=== PATIENT | female | born 1975 | race Hispanic/Latino ===

== ENCOUNTER 2025-06-03 09:03 | Emergency (ER) | payer SELFPAY ==
[~2025-06-03] VITALS: Ht 160 cm; Wt 71.8 kg
[2025-06-03 09:12] VITALS: TEMP 97.5
--- NOTE | 2025-06-03 09:19 | ERN ---
ED Note History of Present Illness Stated Complaint: ANKLE Chief Complaint: Ankle Problem Time Seen by MD: 09:15 Dictation: 50-year-old female who presents to emergency room with complaints of left ankle pain. Denies any new ankle injuries. Patient states that she was seen and evaluated at an outside hospital about one week ago after sustaining a dog bite to the left ankle. States that she was given doxycycline antibiotics which he has been taking twice daily and has had Wound Care come to her house to take care of the dog bite. She states that with the increasing pain as well as the drainage coming from the left ankle she decided to come to emergency room for evaluation. She has follow up by Dr. Cartagena for wound care. She has follow up with her PCP in five days. Allergies: Coded Allergies: No Known Drug Allergies (Unverified Allergy, Unknown, 06/03/25) Past Medical History Past Medical History: No Pertinent History Surgical History: Appendectomy, Cholecystectomy Review of System Dictation Positive for ankle pain Review of Systems: was completed, & the rest were negative. Initial Vital Sign VS Vital Signs Date Time Temp Pulse Resp B/P (MAP) Pulse Ox O2 Delivery O2 Flow Rate FiO2 06/03/25 09:07 97.5 101 16 137/81 97 Room Air 0 06/03/25 09:12 21 Physical Exam Dictation GENERAL APPEARANCE NAD, activity normal for age, well developed/ well nourished, no cyanosis, pallor, or diaphoresis. EYES lids/conjunctiva normal. EARS/NOSE/THROAT Mucous membranes moist, nares normal, lips/teeth normal uvula midline without oral pharyngeal erythema, exudate or swelling TMs normal bilaterally. No lymphangitis/lymphedema. HEAD/NECK normocephalic atraumatic, no facial trauma, neck is supple. RESPIRATORY respiratory effort normal, speaks in full sentences, no tripod position, no accessory muscle use. Lungs clear to auscultation without rhonchi, wheezes, rales CARDIAC Regular rate and rhythm, no edema. ABDOMINAL Soft, ND/NT. No evidence of fluid wave. No pulsatile masses on exam, rebound tenderness, Crane sign or pain over Mcburney's point. MUSCLES/EXTREMITIES : Left lower extremity in soft splint. Uses walker for gait assistance. Splint removed noted to have swelling compared to right ankle. Tenderness to palpation of left lateral ankle. Pain with dorsiflexion. Overlying stitches on left lateral ankle. No signs of drainage. No underlying erythema. No fluctuance. SKIN Warm, pink and dry. No rashes, dermatoses, petechiae or lesions. NEUROLOGICAL Speech is clear and appropriate. Normal level of consciousness PSYCH Normal mood and affect. Judgement/competence is appropriate Results (Laboratory/Radiology) Laboratory/Radiology Comminuted fracture involving the distal metaphyseal end of the fibula, faint lucency involving the hip via in the distal metaphyseal, and probable nondisplaced fracture. Diffuse soft tissue edema around the ankle joint. ED Course ED Course Orders Procedure Category Date Status Time Ankle Comp 3vws Lt RAD 06/03/25 Resulted 09:19 Aerobic Culture GRICELDA 06/03/25 In Process 09:19 Vital Signs Date Time Temp Pulse Resp B/P (MAP) Pulse Ox O2 Delivery O2 Flow Rate FiO2 06/03/25 09:12 97.5 101 16 137/81 97 Room Air* 0 21 06/03/25 09:07 97.5 101 16 137/81 97 Room Air 0 Medical Decision Making MDM 50-year-old female here for ankle pain. Has been following with Wound Care and PCP for left ankle fracture management. She has still been using a walker. Repeat x-ray shows comminuted fracture of left tibia. Spoke to orthopedics who recommends posterior and sugar-tong splint. We will also provide crutches and crutch training. She needs to be nonweightbearing on left lower extremity. Discussed laceration care. As she is being followed by wound care, I will defer to them for removal of stitches. Advised to follow up with PCP and orthopedics in the next week. X-ray picture printed and given to patient. She has her pain well controlled. Advised on concerning signs and symptoms for which to return to emergency room. All questions answered at this time. DX & DISP Disposition: Discharge Departure Impression: Primary Impression: Nondisplaced comminuted fracture of shaft of fibula Additional Impressions: Dog bite of left ankle, Ankle pain, left Condition: Stable Referrals: SELF,REFERRAL (PCP) CHELI ROCK MD Jun 03, 2025 09:19
--- NOTE | 2025-06-03 10:13 | HMCIMG ---
EXAM: CR Left Ankle, 3 views. CLINICAL HISTORY: Drainage from the ankle. COMPARISON: None provided. FINDINGS: Comminuted fracture involving the distal metaphyseal end of the fibula and faint lucency involving the hip via in the distal metaphyseal and probable nondisplaced fracture. Diffuse soft tissue edema around the ankle joint. No definitive evidence of osteomyelitis. No aggressive appearing osseous lesion. Joint spaces are within normal limits. No radiographic evidence of joint effusion. IMPRESSION: Comminuted fracture involving the distal metaphyseal end of the fibula, faint lucency involving the hip via in the distal metaphyseal, and probable nondisplaced fracture. Diffuse soft tissue edema around the ankle joint. No definitive evidence of osteomyelitis. /[place]
[2025-06-03 11:22] VITALS: BP 115/67; PULSE 91; RESP 12; O2SAT 97
--- NOTE | 2025-06-03 11:35 | NUR ---
APPLIED NEW DRESSING TO LEFT ANKLE PETROLEUM DRESSING AND NON-ADHERENT PAD. LEFT POSTERIOR/ANTERIOR ANKLE SPLIT APPPLIED, PT TOLERATED WELL. PROVIDED CRUTCHES WITH CRUTCH WALK INSTRUSTIONS, PT VERBALIZED UNDERSTANDING.
== END 2025-06-03 11:55 | disposition home or self-care (01) ==
LOC: EDH 09:03
DX: S82.455A Nondisplaced comminuted fracture of shaft of left fibula, initial encounter for closed fracture (principal); S91.052A Open bite, left ankle, initial encounter; Z90.49 Acquired absence of other specified parts of digestive tract; W54.0XXA Bitten by dog, initial encounter; Y93.89 Activity, other specified; Y92.89 Other specified places as the place of occurrence of the external cause; Y99.8 Other external cause status
CPT/HCPCS: 29515; 73610; 87070; 99284